=== PATIENT | female | born 1950 | race Caucasian/White ===

== ENCOUNTER → 2023-05-30 06:29 | Day surgery (SDC) | payer BC, SELFPAY | LOC: GI 06:29 | PROVIDERS: ATTENDING PHYSICIAN Internal Medicine; FAMILY PHYSICIAN Family Medicine | DX: Z12.11 Encounter for screening for malignant neoplasm of colon (principal); K63.5 Polyp of colon; K63.89 Other specified diseases of intestine; K57.30 Diverticulosis of large intestine without perforation or abscess without bleeding; K56.2 Volvulus; K64.9 Unspecified hemorrhoids; K29.50 Unspecified chronic gastritis without bleeding; K20.90 Esophagitis, unspecified without bleeding; K21.9 Gastro-esophageal reflux disease without esophagitis; K44.9 Diaphragmatic hernia without obstruction or gangrene; K31.89 Other diseases of stomach and duodenum; R12 Heartburn | CPT/HCPCS: 45380; 43239; 88305; 88342 ==

== ENCOUNTER → 2023-06-04 10:47 | Outpatient (REF) | payer BC, SELFPAY | LOC: WDC 10:47 | PROVIDERS: ATTENDING PHYSICIAN Obstetrics & Gynecology Gynecology; FAMILY PHYSICIAN Family Medicine | DX: Z12.31 Encounter for screening mammogram for malignant neoplasm of breast (principal); M85.89 Other specified disorders of bone density and structure, multiple sites | CPT/HCPCS: 77063; 77067; 77080 ==

== ENCOUNTER 2023-07-24 18:29 | Inpatient (IN) | payer MEDICARE, BC, SELFPAY ==
[2023-07-24] VITALS (9 sets, daily range): BP systolic 100–129; BP diastolic 54–87; BMI 27.6
[2023-07-24 14:55] LABS: % Basophils 0.3 % (0-2); % Eosinophils 0.1 % (0-6); % Immature Granulocytes 0.5 % (0-0.5); % Lymphocytes 8.2 % (20.5-51.1); % Monocytes 5.6 % (1.7-9.3); % Neutrophils 85.3 % (42.2-75.2); Absolute Basophils 0.1 10^3/uL (0-0.2); Absolute Immature Granulocytes 0.1 10^3/uL (0-0.05); Absolute Lymphocytes 1.6 10^3/uL (1.2-3.4); Absolute Monocytes 1.1 10^3/uL (0.1-0.6); Absolute Neutrophils 17.1 10^3/uL (1.4-6.5); Hematocrit 38.6 % (37.0-47.0); Hemoglobin 12.8 g/dL (12.0-16.0); Mean Corp Hgb Conc. 33.2 g/dL (33.0-37.0); Mean Corpuscular Hgb 28.6 pg (27.0-31.0); Mean Corpuscular Volume 86.4 fL (81.0-99.0); Mean Platelet Volume 10.5 fL (7.4-10.4); Nucleated Red Blood Cells % 0 %; Platelet Count 267 10^3/uL (130-400); Red Blood Cell Count 4.47 10^6/uL (4.20-5.40); Red Cell Dist. Width 13.7 % (11.5-14.5); White Blood Cell Count 20.1 10^3/uL (4.8-10.8)
[2023-07-24 15:05] LABS: INR 1.09; PT 14.1 Sec (11.4-14.6)
[2023-07-24 15:12] LABS: ALT (SGPT) 17 U/L (0-35); AST (SGOT) 22 U/L (14-36); Albumin 4.4 g/dl (3.5-5.0); Alkaline Phosphatase 82 U/L (38-126); Blood Urea Nitrogen 18 mg/dl (7-17); Calcium 9.7 mg/dl (8.4-10.2); Carbon Dioxide 25 mmol/L (22-30); Chloride 101 mmol/L (98-107); Glucose 113 mg/dl (70-99); Potassium 3.3 mmol/L (3.5-5.1); Sodium 135 mmol/L (135-145); Total Bilirubin 0.8 mg/dl (0.2-1.3); Total Protein 7.5 g/dl (6.3-8.2); eGFR > 60.00
[2023-07-24] MEDS: MORPHINE SULFATE 4 MG IV (15:22)
[2023-07-24] MEDS: NSS 1000 IV (15:22)
--- NOTE | 2023-07-24 15:34 | ED.GENMED ---
History of Present Illness
General
Chief Complaint: Rectal Bleeding
Source: patient and spouse
Time Seen by Provider: 07/24/23 14:35
Travel History
Have you had any contact with someone who has COVID-19?: No
Do you have any symptoms of coronavirus? Fever > 100 degrees, chills, cough, shortness of breath, sore throat, loss of taste or smell, muscle aches, or headache?: No
History of Present Illness
History of Present Illness:
73-year-old female presenting the emergency department for evaluation of lower abdominal pain and diarrhea that started yesterday, worsened overnight and worse this morning now accompanied with bloody stools which patient states is not bright red
blood but also is not extremely dark either. She states she has had a few episodes of this since arrival to the emergency department. Patient states the pain is described to be along the diffuse lower part of her abdomen, nonradiating, constant
throbbing sensation. She notes that driving here because the pain to worsen. Denies any fevers, chills, rigors, urinary symptoms, back or flank pain, nausea or vomiting. Denies any history of similar. No known sick contacts, recent travel or
recent antibiotics. Patient notes that she had a colonoscopy here about 1 month ago and believes there were no abnormal findings. Does note a history of chronic GERD/reflux-like issues and follows with GI for this. Denies any use of
anticoagulants.
Past History
Past History
ED Past Medical History: GERD and Other (abdominal pain)
ED Past Surgical History: Other (Carpal tunnel)
Social History
Tobacco: Non-smoker
Alcohol: None
Drug: None
Personal:
Living: with family
Review of Systems
Review of Systems
All Other Systems: ROS reviewed and negative except as documented in HPI and ROS
Phy Exam
Physical Exam
Physical Exam:
GENERAL: Alert , in no apparent distress
EYE: Clear conjunctiva
NECK: Supple
ENT: o/p clr, mmm.
CARDIAC: Borderline tachycardic rate and rhythm
LUNGS: Clear breath sounds bilaterally, no acute respiratory distress, no wheezes/rales/rhonchi
ABDOMEN: Soft, diffusely tender abdomen but worse suprapubically and left lower quadrant, no r/g, no cvat
rectal exam: Chaperoned by ED ALE mosley stool, faintly heme positive
NEUROLOGICAL: Alert and oriented, no focal neuro deficits
SKIN: Warm and dry, skin intact.
MUSCULOSKELETAL: well perfused.
PSYCH: Normal and appropriate interaction.
Scores
Heart Failure Risk
Heart Failure Risk Score: Not Applicable
Heart Score for Chest Pain Patients
STEMI patient?: Not applicable
Withdrawal Assessment of Alcohol
Withdrawal Assessment Completed?: Not applicable
Course
Orders/Labs/Results
Orders:
Orders
07/24/23 14:49
Complete Blood Count/With Diff Urgent
Comprehensive Metabolic Panel Urgent
PTT Urgent
Prothrombin Time Urgent
07/24/23 14:57
CT Abd/pelvis W Iv Cont Urgent
Comment:
Reason For Exam: lower abd pain, GI bleeding
07/24/23 14:59
0.9% Sodium Chloride 1000 ml [Nss] 1,000 ml IV BOLUS
Morphine Sulfate 4 mg IV NOW STA
07/24/23 15:15
Type+Screen Routine
BBK Wristband Number:
Lactic Acid Q4H
Comment: CANCEL 2nd LACTIC ACID IF 1st LACTIC ACID IS LESS THAN 2
Blood Culture Q30M
PAL Source: Blood/Venous
Specimen Description:
Blood Culture Q30M
PAL Source: Blood/Venous
Specimen Description:
07/24/23 16:06
HYDROmorphone [Dilaudid] 0.5 mg IV NOW STA
07/24/23 17:26
Piperacillin/Tazo 3.375 Gram [Zosyn] 3.375 gram in 50 ml IV NOW
07/24/23 19:00
Lactic Acid Q4H
Comment: CANCEL 2nd LACTIC ACID IF 1st LACTIC ACID IS LESS THAN 2
Abnormal Lab Results
07/24/23
14:49
WBC 20.1 H 10^3/uL
(4.8-10.8)
MPV 10.5 H fL
(7.4-10.4)
Abs Immat Gran (auto) 0.1 H 10^3/uL
(0-0.05)
Absolute Neuts (auto) 17.1 H 10^3/uL
(1.4-6.5)
Absolute Monos (auto) 1.1 H 10^3/uL
(0.1-0.6)
Neutrophils % 85.3 H %
(42.2-75.2)
Lymphocytes % 8.2 L %
(20.5-51.1)
Potassium 3.3 L mmol/L
(3.5-5.1)
BUN 18 H mg/dl
(7-17)
Glucose 113 H mg/dl
(70-99)
07/24/23 14:49
07/24/23 14:49
Vital Signs
Initial and Last Documented VS:
Initial Vital Signs
Temp Pulse Resp BP Pulse Ox
98.3 F 111 20 108/72 99
07/24/23 13:38 07/24/23 13:38 07/24/23 13:38 07/24/23 13:38 07/24/23 13:38
Last Documented Vital Signs
Temp Pulse Resp BP Pulse Ox
98.3 F 89 19 114/82 97
07/24/23 13:38 07/24/23 17:00 07/24/23 17:00 07/24/23 17:00 07/24/23 16:15
MDM/Problems Addressed
Differential Diagnosis Includes:
Diverticular bleed, colitis, infectious diarrhea, upper GI bleeding, hemorrhoidal bleeding
MDM/Problems Addressed:
73-year-old female presenting emergency department for evaluation of lower abdominal pain and now with bloody bowel movements. She does appear uncomfortable but is in no acute distress. I reviewed patient's colonoscopy from May 29 which shows
hemorrhoids on the perianal exam, multiple diverticulum were present within the left colon and few within the right side of the colon. There was also a polyp that was noted and removed. Based off of her colonoscopy findings I do suspect bleeding
diverticulum to be the most likely diagnosis. CT scan ordered. Morphine ordered for pain. Will continue to watch patient's blood pressure. Anticipate admission.
*Radiology
Radiology exam reviewed: radiology read reviewed
*Pulse Oximetry
Patient hypoxic: no
*Casino Runner Interpretation
Rate: tachycardiac
Rhythm: sinus
*Critical Care Note
Total Time (30-74mins, 75-104mins- exclusive of procedures): Not Applicable
Data Reviewed
Review of Other/Old Records Reveals: Labs, Records and Testing
Patient Management
Discussion with other providers: Hospitalist and Credit Consultant
Escalation/DeEscalation of care consider admission/obs:
Patient CT scan shows colitis involving the transverse colon, descending colon and sigmoid colon. Suspect also diverticular bleed. Zosyn ordered for antibiotic coverage. Hospitalist team notified and accepts for continued evaluation and
treatment. GI and colorectal were also notified.
ED Attending Note
-
Portions of this chart may have been created with voice recognition software.� Occasional wrong word or��sound alike� substitutions may have occurred due to the inherent limitations of voice recognition software.
Discharge Plan
Departure
Patient Disposition: Admit
Date of Disposition: 07/24/23
Time of Disposition: 17:28
Presentation/result/management discussed w/ accepting MD/DO: Hospitalist
Discharge Problem:
Diverticulitis of intestine with bleeding
Prescriptions:
No Action
folic acid 400 mcg Tablet
0.4 mg PO DAILY
gabapentin 600 mg Tablet
600 mg PO BID
famotidine [Pepcid] 20 mg Tablet
20 mg PO DAILY
wrjzeso-cbpbanenwf-SKW-caff [id number] mg capsule
1 cap PO DAILYPRN PRN (Reason: mirgraines)
pantoprazole [Protonix] 40 mg Tablet,Delayed Release (Dr/Ec)
40 mg PO DAILY
lisinopril 10 mg Tablet
10 mg PO DAILY
cholecalciferol (vitamin D3) [Vitamin D3] 25 mcg (1,000 unit) Tablet
25 mcg PO DAILY
venlafaxine 225 mg Tablet Extended Release 24hr
225 mg PO DAILY
Referrals:
Domo Trinh MD [Family Provider] -
Interventions
Interventions:
*Risk Screen - Suicide Last Done: 07/24/23 14:45
*General Assessment Last Done: 07/24/23 14:45
*Neglect/Abuse Screening Last Done: 07/24/23 14:45
ED- Fall Risk Assessment Last Done: 07/24/23 14:45
*ED COVID-19 Vaccine History Last Done: 07/24/23 13:38
RG-Vwqvci-Uxlfairqab Assessment Last Done: 07/24/23 14:45
ED- Cardiac Assessment Last Done: 07/24/23 14:45
ED- Pulmonary Assessment Last Done: 07/24/23 14:45
Discharge Date and Time
Print Language: ITALIAN
[2023-07-24 15:43] LABS: Lactic Acid 1.2 mmol/L (0.7-2.0)
[2023-07-24] MEDS: DILAUDID 0.5 MG IV (16:09)
[2023-07-24] MEDS: ZOSYN 50 IV ×2 (17:47→23:29)
--- NOTE | 2023-07-24 18:12 | HPS.HSE ---
Family Physician
-
Family Physician: Domo Trinh
Chief Complaint
-
Diarrhea
History of Present Illness
Patient is a 73 y/o female past medical history of hypertension, GERD , anxiety and occipital neuralgia who presents with diarrhea. Patient reports yesterday she started with very frequent bowel movement with associated urgency and abdominal
cramping. She reports today stools were more water and she noticed some blood which prompted her to come to the emergency department for evaluation. She denies prior history of colitis or GI bleed. She just had a colonoscopy last month with
evidence of diverticulosis and polyps which were resected. She denies recent travel, unusual food intake or recent antibiotic use.
Medical History
Past Medical History
Past Medical History: Reports Other
Additional Past Medical History:
Essential Hypertension
GERD
Generalized Anxiety Disorder
Occipital Neuralgia
Past Surgical History: Reports Other
Additional Past Surgical History:
Carpal Tunnel
Social History
Tobacco: Non-smoker
Alcohol: Occasional
Family History
Family History: Not pertinent
Allergies / Home Medications
Allergies reflects when Allergies were last updated in [facility].
Home Medications with original date entered in [facility]
Allergy/Medication List:
Allergies
Allergy/AdvReac Type Severity Reaction Status Date / Time
No Known Drug Allergies Allergy none Verified 07/24/23 13:38
Home Medications
folic acid 400 mcg tablet 0.4 mg PO DAILY 06/16/10
cholecalciferol (vitamin D3) 25 mcg (1,000 unit) tablet (Vitamin D3) 25 mcg PO DAILY 07/24/23
dvlsyse-tfkhugjtle-MTC-caffeine 30 mg-50 mg-325 mg-40 mg capsule 1 cap PO DAILYPRN PRN mirgraines 07/24/23
famotidine 20 mg tablet (Pepcid) 20 mg PO DAILY 07/24/23
gabapentin 600 mg tablet 600 mg PO BID 07/24/23
lisinopril 10 mg tablet 10 mg PO DAILY 07/24/23
pantoprazole 40 mg tablet,delayed release (Protonix) 40 mg PO DAILY 07/24/23
venlafaxine 225 mg tablet,extended release 24 hr 225 mg PO DAILY 07/24/23
Review of Systems
-
A 12 point ROS was completed and negative except as noted: Yes
Constitutional: Denies Fever or Chills
Respiratory: Denies Cough or Trouble Breathing
Cardiac: Denies Chest Pain or Palpitations
Physical Exam
Vital Signs
Vital Signs
Temp Pulse Resp BP Pulse Ox
98.3 F 90 19 114/82 98
07/24/23 13:38 07/24/23 17:45 07/24/23 17:45 07/24/23 17:00 07/24/23 17:45
Physical Exam
General: Comfortable and Conversant
HEENT: Anicteric and Moist mucous membranes
Respiratory: Clear and Non Labored Respirations
Cardiac: S1/S2 and Regular Rhythm
GI: Soft and Tender (Left side, particularly in left lower quadrant without rebound or guarding)
Rectal: Other (Brown slightly heme positive per ED provider)
Musculoskeletal: No Clubbing, No Cyanosis and No Edema
Skin: Warm and Dry
Neuro: Awake, Alert, Oriented and Nonfocal/grossly intact
Psych: Calm
Laboratory Results
-
07/24/23 14:49
07/24/23 14:49
Laboratory Results
PT 14.1 Sec (11.4-14.6) 07/24/23 14:49
INR 1.09 07/24/23 14:49
APTT 26.0 Sec (23.4-35.0) 07/24/23 14:49
Lactic Acid 1.2 mmol/L (0.7-2.0) 07/24/23 15:15
Total Bilirubin 0.8 mg/dl (0.2-1.3) 07/24/23 14:49
AST 22 U/L (14-36) 07/24/23 14:49
ALT 17 U/L (0-35) 07/24/23 14:49
Alkaline Phosphatase 82 U/L (38-126) 07/24/23 14:49
Data Reviewed
-
CT Scan: Report Reviewed by me
Lab Data: Labs Reviewed by me
Impression/Plan
-
Colitis, likely ischemic in nature
-Consult GI
-Check stool studies to evaluate for possible infectious colitis
-Continue Zosyn
-Continue NPO/IVFs
Hypokalemia, likely from GI losses
-Replace and recheck level in AM
Essential Hypertension
-Hold lisinopril
GERD
-Continue Protonix and Pepcid
Generalized Anxiety Disorder
-Continue venlafaxine
Occipital Neuralgia
-Continue gabapentin
DVT proph: SCDs
Code Status: Full Code
--- NOTE | 2023-07-24 18:21 | W.PN.UPDATE ---
Update Note
Progress Note Update
I saw and examined the patient.
The MUSIC DEPARTMENT CHAIR or PA's note was reviewed and I agree with the note.
Comment:
GEN: No acute distress, conversant, pleasant
HEENT: anicteric, extraocular movements intact, clear oropharynx without exudates
CV: normal S1/S2, no murmur, rub or gallop
RESP: clear to auscultation bilaterally
GI: soft, non-distended, tender to palpation( left side) , normal active bowel sounds.
EXT: warm, well perfused, no edema bilaterally
NEURO: AAOx3, non-focal
Psych: calm
Assessment and plan
#Acute colitis involving transverse, descending and sigmoid colon
Mild sepsis on admission with the criteria of tachycardia, leukocytosis, colitis
Differential diagnosis included ischemic colitis/infectious colitis. Her symptoms started abruptly.� No history of nausea or vomiting.� Started as lower abdominal cramps with bloody stools. �Borderline low normal systolic blood pressure.� Seems more
consistent with ischemic colitis. We will do empiric antibiotic.� Stool studies. �No history of antibiotic use.� No nausea or vomiting. Normal lactic acid on admission, continue to trend lactic acid.� Volume support with IV fluid. Bowel rest
overnight
# Hypokalemia, replace and recheck
# Primary hypertension. Avoid hypotension.
# DVT and GI prophylaxis
Total time spent to see the patient, examine the patient, review data and lab results, discuss treatment plan with patient, nursing staff, ER doctor around 75 minutes
[2023-07-24] MEDS: KCL 270 MEQ IV (18:50)
[2023-07-24] MEDS: D5/0.9% SODIUM CHLORIDE 1000 IV (18:50)
[2023-07-24] MEDS: NEURONTIN PO (20:36)
[2023-07-24] MEDS: DILAUDID 0.25 MG IV (20:54)
[2023-07-25] MEDS: D5/0.9% SODIUM CHLORIDE 1000 IV ×3 (02:33→17:25)
[2023-07-25] MEDS: DILAUDID 0.25 MG IV ×2 (02:40→17:36)
[2023-07-25 03:00] VITALS: BP 112/62
[2023-07-25] MEDS: ZOSYN 50 IV ×4 (05:26→23:35)
[2023-07-25 05:41] LABS: Hematocrit 29.2 % (37.0-47.0); Mean Corp Hgb Conc. 33.6 g/dL (33.0-37.0); Mean Corpuscular Hgb 28.4 pg (27.0-31.0); Mean Corpuscular Volume 84.6 fL (81.0-99.0); Mean Platelet Volume 10.7 fL (7.4-10.4); Platelet Count 205 10^3/uL (130-400); Red Blood Cell Count 3.45 10^6/uL (4.20-5.40); Red Cell Dist. Width 13.8 % (11.5-14.5); White Blood Cell Count 11.8 10^3/uL (4.8-10.8)
[2023-07-25 05:50] LABS: Hemoglobin 9.8 g/dL (12.0-16.0)
--- NOTE | 2023-07-25 05:56 | PTCARENOTE ---
CRISTOBAL Jeff notified of pt's drop in [facility] in morning labs. No active signs of bleeding, pt had no bowel movements overnight, VSS.
[2023-07-25 06:00] VITALS: BMI 28.0
[2023-07-25 06:07] LABS: Blood Urea Nitrogen 12 mg/dl (7-17); Calcium 8.3 mg/dl (8.4-10.2); Carbon Dioxide 23 mmol/L (22-30); Chloride 110 mmol/L (98-107); Estimated Creatinine Clearance 60 ml/min; Glucose 136 mg/dl (70-99); Magnesium 1.7 mg/dl (1.6-2.3); Potassium 4.2 mmol/L (3.5-5.1); Sodium 138 mmol/L (135-145); eGFR > 60.00
--- NOTE | 2023-07-25 06:11 | W.PN.UPDATE ---
Update Note
Progress Note Update
RN notified COMMUNICATION ASSISTANT of hgb drop from 12.8 to 9.8. Patient asymptomatic, stable VS per nursing. GI Consult in place. will order H/H 0900, type and screen done
[2023-07-25 07:47] VITALS: BP 127/77
[2023-07-25] MEDS: EFFEXOR XR 225 MG PO (08:46)
[2023-07-25] MEDS: PEPCID 20 MG PO (08:46)
--- NOTE | 2023-07-25 08:46 | CON.GI ---
Consultation
-
Date/Time Consultation Requested: 07/24/23 1920
Date/Time Consultation Performed: 07/25/23 0900
Requesting Provider: Yissel Hinkle PA-C
Performing Provider: Dr. Dave / Kajal Neely PA-C
Reason for Consultation: colitis
Medical History
Chief Complaint / HPI
Chief Complaint: abdominal pain, rectal bleeding
History of Present Illness:
Mariah is a 73 year old female with a past medical history of HTN, anxiety, occipital neuralgia, GERD and diverticulosis who developed acute onset of diarrhea 3 days ago with rectal bleeding and lower abdominal pain. She states the diarrhea lasted
for a day and resolved and she has not had a bowel movement for the past 2 days. She would feel the urge to have a bowel movement, but only blood came out. Bleeding described as 'not a lot' and light red in color. No fevers, chills, nausea,
vomiting, or black/tarry stools. No sick contacts, recent travel or recent antibiotic use. She has known diverticulosis but denies a history of diverticulitis. She is known to our GI practice, was a former patient of Dr. Mcallister's and now followed by
Dr. Servin. She has chronic GERD, on pantoprazole and famotidine. No heartburn, reflux, or dysphagia symptoms currently. She just had a colonoscopy with Dr. Servin on 05/30/23 which showed diverticulosis of the left colon, a 3mm hyperplastic polyp of the
distal transverse colon, as well as an area of scarred mucosa in the mid and distal transverse colon. There is no family history of colon cancer or inflammatory bowel disease. Labs in the ER showed leukocytosis (WBC count 20.8). Lactic acid WNL at
1.2 and hemoglobin stable at 12.8. Platelets and PT/INR also normal. CT abdomen/pelvis showed nonspecific colitis involving the transverse, descending and sigmoid colon with sparing of the cecum and ascending colon. Diverticulosis noted in the
sigmoid colon, without evidence of acute diverticulitis. Also noted on CT are low attenuation structures within the region of the pancreatic head, noted to be too small to characterize with recommendation for nonemergent MRI for further evaluation.
Blood and stool cultures pending. Pt has been started on Zosyn, WBC improved to 11.8 today.
Past Medical History
Past Medical History: GERD, HTN and Other (anxiety, occipital neuralgia, diverticulosis)
Past Surgical History: Other (carpal tunnel surgery)
Social History
Tobacco: Non-Smoker
Alcohol: None
Drug: None
Personal:
Living: With Family
Family History
Family History: Other (no family history of GI malignancies, Crohn's, or ulcerative colitis)
Allergies / Home Medications
Allergy/AdvReac Type Severity Reaction Status Date / Time
No Known Drug Allergies Allergy none Verified 07/24/23 13:38
�Medication �Instructions �Recorded
folic acid 400 mcg tablet 0.4 mg PO DAILY 06/16/10
cholecalciferol (vitamin D3) 25 25 mcg PO DAILY 07/24/23
mcg (1,000 unit) tablet (Vitamin
D3)
yphtjkf-venpqlgkeb-LVD-caffeine 30 1 cap PO DAILYPRN PRN mirgraines 07/24/23
mg-50 mg-325 mg-40 mg capsule
famotidine 20 mg tablet (Pepcid) 20 mg PO DAILY 07/24/23
gabapentin 600 mg tablet 600 mg PO BID 07/24/23
lisinopril 10 mg tablet 10 mg PO DAILY 07/24/23
pantoprazole 40 mg tablet,delayed 40 mg PO DAILY 07/24/23
release (Protonix)
venlafaxine 225 mg tablet,extended 225 mg PO DAILY 07/24/23
release 24 hr
Review of Systems
-
History Source: Patient
All other systems: A 12 pt ROS was Negative except as stated above in HPI
Vital Signs
Temp Pulse Resp BP Pulse Ox
98.2 F 93 18 127/77 98
07/25/23 07:47 07/25/23 07:47 07/25/23 07:47 07/25/23 07:47 07/25/23 07:47
Physical Exam
Exam
General: Well Developed, Well Nourished and No Apparent Distress
Respiratory: Clear
Cardiac: Regular Rhythm
GI: Soft, Non Distended, Normal Bowel Sounds (hypoactive bowel sounds) and Tender (+mild lower abdominal tenderness, worse in the left lower quadrant)
Rectal: Other (brown, faintly heme positive stool on ER exam)
Skin: Warm and Dry
Neuro: AO x 3
Psych: Calm
Results
WBC 11.8 10^3/uL (4.8-10.8) H 07/25/23 05:26
Hgb 9.8 g/dL (12.0-16.0) L D 07/25/23 05:26
Hct 29.2 % (37.0-47.0) L 07/25/23 05:26
MCV 84.6 fL (81.0-99.0) 07/25/23 05:26
Plt Count 205 10^3/uL (130-400) D 07/25/23 05:26
Absolute Neuts (auto) 17.1 10^3/uL (1.4-6.5) H 07/24/23 14:49
PT 14.1 Sec (11.4-14.6) 07/24/23 14:49
INR 1.09 07/24/23 14:49
APTT 26.0 Sec (23.4-35.0) 07/24/23 14:49
Sodium 138 mmol/L (135-145) 07/25/23 05:26
Potassium 4.2 mmol/L (3.5-5.1) D 07/25/23 05:26
Chloride 110 mmol/L (98-107) H 07/25/23 05:26
Carbon Dioxide 23 mmol/L (22-30) 07/25/23 05:26
BUN 12 mg/dl (7-17) 07/25/23 05:26
Creatinine 0.8 mg/dL (0.6-1.0) 07/25/23 05:26
Calcium 8.3 mg/dl (8.4-10.2) L 07/25/23 05:26
Total Bilirubin 0.8 mg/dl (0.2-1.3) 07/24/23 14:49
AST 22 U/L (14-36) 07/24/23 14:49
ALT 17 U/L (0-35) 07/24/23 14:49
Alkaline Phosphatase 82 U/L (38-126) 07/24/23 14:49
Diagnostic Image Results:
CT Abdomen/Pelvis: 07/24/23
Nonspecific colitis involving the transverse colon, descending colon, and sigmoid colon. No evidence of pneumatosis.
Minor sigmoid diverticulosis without superimposed focal inflammatory changes of acute diverticulitis.
Trace free fluid in the pelvis. No focal collection or abscess. No free air.
There appear to be small low-attenuation structures in the region of the pancreatic head. Too small to fully characterize. Recommend follow-up nonemergent MRI examination for further evaluation.
Prior GI Procedures:
EGD:
Endoscopy 05/30/2023, Dr. Servin:
- 3 cm hiatal hernia otherwise normal esophagus.
- Biopsies were taken with a cold forceps for
histology in the middle third of the esophagus and in
the lower third of the esophagus.
- Erythematous mucosa in the antrum. Biopsied.
- Normal examined duodenum.
Colonoscopy:
Colonoscopy 05/30/2023, Dr. Servin:
- Hemorrhoids found on perianal exam.
- Diverticulosis in the left colon and a few
throughout.
- One 3 mm polyp in the distal transverse colon,
removed with a jumbo cold forceps. Resected and
retrieved.
- Scarred mucosa in the mid transverse colon and in
the distal transverse colon - usually from a prior
infection or ischemic colitis.
- The examined portion of the ileum was normal.
Colonoscopy 02/02/2014, Dr. Mcallister:
- Diverticulosis in the sigmoid colon. Biopsied.
Assessment / Plan
-
73 year old female with a history of HTN, anxiety, occipital neuralgia, GERD and diverticulosis who developed acute onset of diarrhea 3 days ago with rectal bleeding and lower abdominal pain. Diarrhea has now resolved; no fever, chills, nausea or
vomiting. The abdominal pain is improved but still feels 'sore.' CT findings of nonspecific colitis involving the transverse, descending and sigmoid colon; diverticulosis noted without evidence of diverticulitis. Blood and stool cultures pending.
Initial WBC count on admission yesterday 20.8 without an elevated lactic acid. Pt has been started on Zosyn, WBC improved to 11.8 today.
IMPRESSION / PLAN:
Colitis, nonspecific -- infectious vs inflammatory vs ischemic
-initial presentation with elevated WBC count suggestive of possible infectious colitis
-blood cultures pending
-stool cultures ordered
-pt currently on IV Zosyn
-Ischemic colitis certainly within the differential diagnosis as well; pt has been hemodynamically stable without hypotension
-continue IV fluids
Anemia
-initial Hgb 12.8 on 07/23
-down to 9.8 today 07/24 with normal MCV
-will order iron studies, B12, folate
-continue to trend Hgb
-pt had recent EGD and colonoscopy in May
GERD, chronic
-continue pantoprazole 40mg and famotidine 20mg
Pancreatic lesions
-'low attenuation structures' within the region of the pancreatic head, too small to characterize noted on CT scan, with recommendation for nonemergent MRI for further evaluation
-can be addressed in outpatient follow-up
Other medical issues managed as per Hospitalist. We will follow.
-
-
Thank you for consultation and allowing me to participate in the patient's care. Please call the credit resolution representative GI physician during the after hours with any questions or concerns.
[2023-07-25] MEDS: NEURONTIN 600 MG PO ×2 (08:47→21:19)
[2023-07-25] MEDS: PROTONIX 40 MG PO (08:48)
--- NOTE | 2023-07-25 10:12 | W.PN.HOSP.TC ---
Today's Communication/Plan
-
.
Assessment / Plan
Assessment / Plan
Physical exam:
GEN: No acute distress, conversant, pleasant
HEENT: anicteric, extraocular movements intact, clear oropharynx without exudates
CV: normal S1/S2, no murmur, rub or gallop
RESP: clear to auscultation bilaterally
GI: soft, non-distended, tender to palpation( left side> right side).
EXT: warm, well perfused, no edema bilaterally
NEURO: AAOx3, non-focal
Psych: calm
#Acute colitis, involvement transverse, descending and sigmoid
likely ischemic in nature
She still having abdominal discomfort. Tenderness on examination left side more than right. No diarrhea overnight
She is not toxic looking. She is not hungry also. No vomiting. WBC is down.
Follow-up with the blood cultures
Continue bowel rest, IV fluid, GI prophylaxis, empiric antibiotic until rule out infectious possibility
Appreciate GI input
# Acute blood loss anemia due to bloody diarrhea.
No more diarrhea. Continue to monitor
# Hypokalemia. Potassium 4 this morning
#Essential Hypertension
-Hold lisinopril while blood pressure is borderline low. Add as needed hydralazine
#GERD
-Continue Protonix and Pepcid
#Generalized Anxiety Disorder
-Continue venlafaxine
#Occipital Neuralgia
-Continue gabapentin
DVT proph: SCDs
Code Status: Full Code
Total time spent to see the patient, examine the patient, review data and lab results, discuss treatment plan with patient, nursing staff around 55 minutes
Anticipated Discharge: > 48 hours
Subjective/Interval History
-
Date of Service: July 25, 2023
Still abdominal discomfort
No diarrhea
No fevers
Objective Data
-
Labs:
Laboratory Results
07/25/23
05:26
WBC 11.8 H
Hgb 9.8 L D
Hct 29.2 L
Plt Count 205 D
Sodium 138
Potassium 4.2 D
Chloride 110 H
Carbon Dioxide 23
BUN 12
Creatinine 0.8
Glucose 136 H
Calcium 8.3 L
Vital Signs:
Vital Signs
Temp Pulse Resp BP Pulse Ox
98.2 F 93 18 127/77 98
07/25/23 07:47 07/25/23 07:47 07/25/23 07:47 07/25/23 07:47 07/25/23 07:47
I&O
07/24/23 07/25/23 07/26/23
06:59 06:59 06:59
Intake Total 1670 / 1670
Balance 1670 / 1670
[2023-07-25 11:07] LABS: Iron 38 ug/dl (37-170)
[2023-07-25 11:16] LABS: Percent Saturation 13 % (20-50); Total Iron Binding Capacity 281 ug/dl (265-497)
[2023-07-25 11:40] LABS: Ferritin 43.8 ng/ml (11.1-264.0)
[2023-07-25 11:54] LABS: Vitamin B12 283 pg/ml (239-931)
--- NOTE | 2023-07-25 11:55 | CON.CRS ---
Consultation
-
Date/Time Consultation Requested: 07/24/2023, 18:21
Date/Time Consultation Performed: 07/25/2023, 09:00
Requesting Provider: Erik Leblanc PA-C
Performing Provider: Sagar Blair MD
Reason for Consultation: colitis
Medical History
-
Chief Complaint: bloody diarrhea
History of Present Illness:
73yo female with a PMH of HTN and GERD presents with a day of diarrhea and abdominal pain. She states it started 07/23/2023 in the AM and lasted the entire day. Toward the end of the day, the diarrhea stopped but she had pink to red blood in the
toilet. She states that she had no stool, just blood. She has never had an issue like this before. She denies chest pain, shortness of break, blood or pain in her urine. When she came to the Er yesterday, she denied abdominal pain. She denies nausea
or vomiting. Her last colonoscopy was a month ago by Dr. Servin which showed diverticulosis in her left colon and a 3mm polyp in the distal transverse colon.
In the Er, her WBC was 20.1. She remains afebrile. Her vitals are normal. Ct A/P shows nonspecific colitis involving the transverse colon, descending colon, and sigmoid colon. No evidence of pneumatosis. Minor sigmoid diverticulosis without
superimposed focal inflammatory changes of acute diverticulitis. She was started on IV Zosyn. Today her WBC is 11.8. Currently she states she has no further bleeding or diarrhea.
Past Medical History
Past Medical History: GERD, HTN, Psychiatric (anxiety) and Other (Occipital Neuralgia)
Past Surgical History: Other (Carpal Tunnel)
Social History
Tobacco: Non-Smoker
Alcohol: Occasional
Family History
Family History: Reviewed & Not Pertinent
Allergies / Home Medications
Allergy/AdvReac Type Severity Reaction Status Date / Time
No Known Drug Allergies Allergy none Verified 07/24/23 13:38
�Medication �Instructions �Recorded �Confirmed �Type
folic acid 400 mcg tablet 0.4 mg PO DAILY Supplement 06/16/10 07/24/23 History
cholecalciferol (vitamin D3) 25 25 mcg PO DAILY Supplement 07/24/23 07/24/23 History
mcg (1,000 unit) tablet (Vitamin
D3)
gqzikzl-zhkubygiie-BXM-caffeine 30 1 cap PO DAILYPRN PRN mirgraines 07/24/23 07/24/23 History
mg-50 mg-325 mg-40 mg capsule
famotidine 20 mg tablet (Pepcid) 20 mg PO DAILY Gastrointestinal 07/24/23 07/24/23 History
Issue
gabapentin 600 mg tablet 600 mg PO BID Neurological 07/24/23 07/24/23 History
Condition
lisinopril 10 mg tablet 10 mg PO DAILY Blood Pressure 07/24/23 07/24/23 History
pantoprazole 40 mg tablet,delayed 40 mg PO DAILY Gastrointestinal 07/24/23 07/24/23 History
release (Protonix) Issue
venlafaxine 225 mg tablet,extended 225 mg PO DAILY Mental Health 07/24/23 07/24/23 History
release 24 hr
Review of Systems
-
History Source: Patient
Abdomen/GI: Abdominal Pain, Diarrhea and Bloody Stools
A 10 point review of systems was completed, and was negative except as per HPI.
Physical Exam
Vital Signs
Temp 98.2 F 07/25/23 07:47
Pulse 93 07/25/23 07:47
Resp Rate 18 07/25/23 07:47
Blood pressure 127/77 07/25/23 07:47
SaO2 98 07/25/23 07:47
07/24/23 07/25/23 07/26/23
06:59 06:59 06:59
Actual Weight 71.753 kg
Body Mass Index (BMI) 28.0
Lab Results / Allergies
07/25/23 05:26
07/25/23 05:26
WBC 11.8 10^3/uL (4.8-10.8) H 07/25/23 05:26
Hgb 9.8 g/dL (12.0-16.0) L D 07/25/23 05:26
Hct 29.2 % (37.0-47.0) L 07/25/23 05:26
Plt Count 205 10^3/uL (130-400) D 07/25/23 05:26
Abs Immat Gran (auto) 0.1 10^3/uL (0-0.05) H 07/24/23 14:49
Neutrophils % 85.3 % (42.2-75.2) H 07/24/23 14:49
Allergy/AdvReac Type Severity Reaction Status Date / Time
No Known Drug Allergies Allergy none Verified 07/24/23 13:38
Physical Exam
General: Well Developed, Well Nourished and No Apparent Distress
GI: Soft, Non Distended and Tender (mild suprapubic)
Neuro: AO x 3
Data Reviewed
-
CT Scan: Image Personally Visualized and interpreted, Report Reviewed by me and Discussed with Patient
Labs: Labs Reviewed by me, Discussed with Physician and Discussed with Patient
Old Records: Reviewed
Assessment / Plan
-
Assessment: 73 yo female with no previous history of colitis presents to the ER with a day of diarrhea, bloody stools, and abdominal pain, found with nonspecific colitis involving the transverse colon, descending colon, and sigmoid colon
Plan:
1. Colitis is nonspecific, could be inflammatory versus infectious versus ischemic. There are no plans for surgery at this time.
2. Stool cultures and blood cultures are pending.
3. Continue IV Zosyn.
4. N.p.o. with IV fluids.
5. Continue to trend vital signs and WBC.
6. Appreciate GI consult.
[2023-07-25 12:00] VITALS: BP 140/87
[2023-07-25 13:11] LABS: Folate > 20.0 ng/ml (2.76-20)
--- NOTE | 2023-07-25 14:30 | CM ---
Met with pt at bedside
Pt lives with her in a 2 story home
Independent, retired, drives
DME - none
SNF/HH - denies past hx
Has ride at d/c
PCP - Dr Vick Trinh
Pharm - [facility]
CM will follow for d/c needs
Plan - anticipate home no needs
[2023-07-25 15:36] VITALS: BP 137/72
[2023-07-25 19:20] VITALS: BP 149/81
[2023-07-25 23:05] VITALS: BP 119/59
[2023-07-26] MEDS: D5/0.9% SODIUM CHLORIDE 1000 IV (03:52)
[2023-07-26 03:55] VITALS: BP 142/74
--- NOTE | 2023-07-26 04:41 | PTCARENOTE ---
Patient with no BM so far this shift. But she did wipe for a small amount of blood with mucus on the tissue paper. IVF and IV ABX as ordered.
[2023-07-26] MEDS: ZOSYN 50 IV (05:48)
[2023-07-26 06:00] VITALS: BMI 28.4
[2023-07-26 07:45] VITALS: BP 138/80
[2023-07-26] MEDS: PEPCID 20 MG PO (08:20)
[2023-07-26] MEDS: PROTONIX 40 MG PO (08:20)
[2023-07-26] MEDS: NEURONTIN 600 MG PO ×2 (08:20→20:12)
[2023-07-26] MEDS: EFFEXOR XR 225 MG PO (08:20)
[2023-07-26 09:16] LABS: Hematocrit 28.7 % (37.0-47.0); Hemoglobin 9.6 g/dL (12.0-16.0); Mean Corp Hgb Conc. 33.4 g/dL (33.0-37.0); Mean Corpuscular Hgb 28.4 pg (27.0-31.0); Mean Corpuscular Volume 84.9 fL (81.0-99.0); Mean Platelet Volume 10.5 fL (7.4-10.4); Platelet Count 195 10^3/uL (130-400); Red Blood Cell Count 3.38 10^6/uL (4.20-5.40); Red Cell Dist. Width 13.6 % (11.5-14.5); White Blood Cell Count 6.8 10^3/uL (4.8-10.8)
[2023-07-26 09:45] LABS: Blood Urea Nitrogen 4 mg/dl (7-17); Calcium 8.5 mg/dl (8.4-10.2); Carbon Dioxide 26 mmol/L (22-30); Chloride 111 mmol/L (98-107); Estimated Creatinine Clearance 61 ml/min; Glucose 106 mg/dl (70-99); Sodium 138 mmol/L (135-145); eGFR > 60.00
--- NOTE | 2023-07-26 10:09 | W.PN.HOSP.TC ---
Today's Communication/Plan
-
.
Assessment / Plan
Assessment / Plan
Physical exam:
GEN: No acute distress, conversant, pleasant
HEENT: anicteric, extraocular movements intact, clear oropharynx without exudates
CV: normal S1/S2, no murmur, rub or gallop
RESP: clear to auscultation bilaterally
GI: soft, non-distended, not tender to palpation( left side> right side).
EXT: warm, well perfused, no edema bilaterally
NEURO: AAOx3, non-focal
Psych: calm
#Acute colitis, involvement transverse, descending and sigmoid
likely ischemic in nature
She is feeling better, would like to eat. No more diarrhea. No fevers.
She is not toxic looking. No vomiting. WBC is normal now.
Ok to start liquid diet then advance as tolerated. Can stop IVF
Negative blood cultures. Stool testing was nt done due to lack of specimen. Might get stool after resuming oral diet
Continue bowel rest, IV fluid, GI prophylaxis, empiric antibiotic until rule out infectious possibility
Might get MR if possible to obtain today
Appreciate GI , colorectal surgery input
# Acute blood loss anemia due to bloody diarrhea.
No more diarrhea. Continue to monitor
# Hypokalemia. Resolved.
#Essential Hypertension
-Hold lisinopril while blood pressure is borderline low. Add as needed hydralazine
#GERD
-Continue Protonix and Pepcid
#Generalized Anxiety Disorder
-Continue venlafaxine
#Occipital Neuralgia
-Continue gabapentin
DVT proph: SCDs
Code Status: Full Code
Total time spent to see the patient, examine the patient, review data and lab results, discuss treatment plan with patient, consultants nursing staff around 55 minutes
Anticipated Discharge: 24 - 48 hours
Subjective/Interval History
-
Date of Service: July 26, 2023
She feels better
No diarrhea
No fevers
No nausea
Objective Data
-
Labs:
Laboratory Results
07/26/23
09:02
WBC 6.8
Hgb 9.6 L
Hct 28.7 L
Plt Count 195
Sodium 138
Potassium 4.0
Chloride 111 H
Carbon Dioxide 26
BUN 4 L
Creatinine 0.8
Glucose 106 H
Calcium 8.5
Vital Signs:
Vital Signs
Temp Pulse Resp BP Pulse Ox
98.6 F 93 17 138/80 99
07/26/23 07:45 07/26/23 07:45 07/26/23 07:45 07/26/23 07:45 07/26/23 07:45
I&O
07/25/23 07/26/23 07/27/23
06:59 06:59 06:59
Intake Total 1670 / 1670 2860 / 2860
Balance 1670 / 1670 2860 / 2860
--- NOTE | 2023-07-26 10:41 | W.PN.CRS1 ---
Today's Communication / Plan
-
no plans for surgery
will sign off
please contact if further issues arise
Assessment/Plan
-
Assessment: 73 yo female with no previous history of colitis presents to the ER with a day of diarrhea, bloody stools, and abdominal pain, found with nonspecific colitis involving the transverse colon, descending colon, and sigmoid colon
Plan:
1. Colitis is nonspecific, could be inflammatory versus infectious versus ischemic.
2. Stool cultures and blood cultures are pending.
3. Continue IV Zosyn.
4. Okay to advance diet to clears and then as tolerated.
5. Continue to trend vital signs and WBC.
6. MRI per GI pending.
7. No plans for surgery at this time. Will sign off. Please contact us if further issues arise. Follow up in the office with Dr. Blair due to rectal bleeding.
Subjective Data
Subjective Data
Date of Service: July 26, 2023
Patient states she has no nausea or vomiting. She had no bowel movements overnight. She did notice some blood when wiping. She is hungry.
Objective Data
-
Vital Signs
Temp Pulse Resp BP Pulse Ox
98.6 F 93 17 138/80 99
07/26/23 07:45 07/26/23 07:45 07/26/23 07:45 07/26/23 07:45 07/26/23 07:45
Intake & Output
07/25/23 07/26/23 07/27/23
06:59 06:59 06:59
Intake Total 1670 / 1670 2860 / 2860
Balance 1670 / 1670 2860 / 2860
Intake:
Oral fluids 20 / 20 60 / 60
IV fluids (Total) 1650 / 1650 2700 / 2700
IV piggybacks 100 / 100
Other:
Number of approximated SMALL 3
amounts of urine
Number of approximated MODERATE 3 2
amounts of urine
Number of approximated LARGE 1
amounts of urine
Lab Results
07/26/23 09:02
07/26/23 09:02
Physical Exam
-
General: No Acute Distress and AOx3
Abdomen: Soft, Non Distended and Tender (minimal tenderness)
Skin: Warm and Dry
--- NOTE | 2023-07-26 11:05 | W.PN.GI.CBS2 ---
Today's Communication / Plan
-
Advance diet. MRA pending. If tolerating diet, okay to discharge from a GI perspective, with outpatient follow-up
Assessment / Plan
-
73 year old female with a history of HTN, anxiety, occipital neuralgia, GERD and diverticulosis who developed acute onset of diarrhea 3 days ago with rectal bleeding and lower abdominal pain. On arrival, she was noted to be hemodynamically stable
with leukocytosis of 20K and normal lactate, CT findings consistent colitis in a watershed distribution. She was started on zosyn, changed to unasyn as well as IVF with significant improvement and resolution of symptoms.Her blood cultures have been
negative and she has not had any bowel movements to collect for stool culture or c.diff, which does not support an infectious colitis.
She recently underwent a colonoscopy with Dr. Servin on 05/30/2023 which notes diverticulosis throughout the left colon as well as scattered in the right colon. Scarred mucosa was noted in the mid transverse colon and in the distal transverse colon,
she notes appearance stent with prior infection or ischemic colitis. At this time her clinical picture is overall consistent with ischemic colitis, imaging corresponds to watershed region. Given recent colonoscopy she does not require a
colonoscopy at this time as she appears to have a mild presentation.
#Colitis likely 2/2 ischemia less likely infectious or inflammatory etiology
-Recommend dedicated imaging of her vasculature--MRA pending.
-Advance diet as tolerated--if able to tolerate diet, okay for discharge from GI perspective
-Despite her not necessarily meeting all criteria for antibiotics, I feel there is some benefit to completing therapy to prevent bacterial translocation due to loss of mucosal integrity--Complete 7 day course of antibiotics
-Outpatient follow-up with GI
*GERD, chronic
-continue pantoprazole 40mg and famotidine 20mg
#Pancreatic lesions
-'low attenuation structures' within the region of the pancreatic head, too small to characterize noted on CT scan, with recommendation for nonemergent MRI for further evaluation
-can be addressed in outpatient follow-up
Subjective
Subjective
Date of Service: July 26, 2023
Patient seen in follow-up this morning, no overnight events. Her diet was advanced today, she feels hungry and would like to try eating. Denies any nausea, vomiting, abdominal pain. She does admit to scant amount of bright red blood in the toilet
last night, hemoglobin stable at 9.6 from 9.8 yesterday.
Objective
Data Reviewed
Laboratory Data:
Laboratory Results
07/26/23 09:02
07/26/23 09:02
Laboratory Results
PT 14.1 Sec (11.4-14.6) 07/24/23 14:49
INR 1.09 07/24/23 14:49
APTT 26.0 Sec (23.4-35.0) 07/24/23 14:49
Magnesium 1.7 mg/dl (1.6-2.3) 07/25/23 05:26
Total Bilirubin 0.8 mg/dl (0.2-1.3) 07/24/23 14:49
AST 22 U/L (14-36) 07/24/23 14:49
ALT 17 U/L (0-35) 07/24/23 14:49
Alkaline Phosphatase 82 U/L (38-126) 07/24/23 14:49
Vital Signs and I&O:
Vital Signs
Temp Pulse Resp BP Pulse Ox
98.6 F 93 17 138/80 99
07/26/23 07:45 07/26/23 07:45 07/26/23 07:45 07/26/23 07:45 07/26/23 07:45
I&O
07/25/23 07/26/23 07/27/23
06:59 06:59 06:59
Intake Total 1670 / 1670 2860 / 2860
Balance 1670 / 1670 2860 / 2860
Physical Exam
Physical Exam
GENERAL: In no acute distress, appears comfortable
ABDOMEN: +BS; soft, non-tender and non-distended; no rebound or guarding
[2023-07-26 12:09] VITALS: BP 130/83
[2023-07-26 15:29] VITALS: BP 149/87
[2023-07-26 19:10] VITALS: BP 147/83
[2023-07-26 23:05] VITALS: BP 139/90
[2023-07-27 03:05] VITALS: BP 120/67
[2023-07-27 06:00] VITALS: BMI 28.1
[2023-07-27 07:00] VITALS: BP 152/96
[2023-07-27] MEDS: PEPCID 20 MG PO (08:39)
[2023-07-27] MEDS: EFFEXOR XR 225 MG PO (08:39)
[2023-07-27] MEDS: NEURONTIN 600 MG PO (08:39)
[2023-07-27] MEDS: PROTONIX 40 MG PO (08:39)
--- NOTE | 2023-07-27 09:05 | CM ---
Reviewed chart, per nursing notes, patient is at baseline, ambulating independently as well as toileting and performing other ADLs.
Plan: Case management will continue to follow and assist with discharge planning. Patient will return home with spouse at discharge.
--- NOTE | 2023-07-27 09:15 | W.PN.GI.CBS2 ---
Today's Communication / Plan
-
dc planning, gi/vasc surgery outpatient follow up, abx
Assessment / Plan
-
73 year old female with a history of HTN, anxiety, occipital neuralgia, GERD and diverticulosis who developed acute onset of diarrhea 3 days ago with rectal bleeding and lower abdominal pain. On arrival, she was noted to be hemodynamically stable
with leukocytosis of 20K and normal lactate, CT findings consistent colitis in a watershed distribution. She was started on zosyn, changed to unasyn as well as IVF with significant improvement and resolution of symptoms.Her blood cultures have been
negative and she has not had any bowel movements to collect for stool culture or c.diff, which does not support an infectious colitis.
She recently underwent a colonoscopy with Dr. Servin on 05/30/2023 which notes diverticulosis throughout the left colon as well as scattered in the right colon. Scarred mucosa was noted in the mid transverse colon and in the distal transverse colon,
she notes appearance stent with prior infection or ischemic colitis. At this time her clinical picture is overall consistent with ischemic colitis, imaging corresponds to watershed region. Given recent colonoscopy she does not require a
colonoscopy at this time as she appears to have a mild presentation.
MRA 07/26/2023 1. Severe circumferential wall thickening and submucosal edema in the PROXIMAL SIGMOID COLON consistent with ACUTE ISCHEMIC COLITIS. Mild circumferential wall thickening throughout the descending colon which has decreased since
07/24/2023. An acute infectious colitis is an alternative diagnostic possibility.
2. 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
3. Moderate diverticulosis in the sigmoid colon.
#Ischemic colitis
-MRA as above, d/w Dr. Moulton who d/w vascular surgery recommend outpatient follow up
-Tolerating diet
-Complete 7 day course of antibiotics
-Outpatient follow-up with GI - patient given appt date/time with Dr. Servin 08/20
*GERD, chronic
-continue pantoprazole 40mg and famotidine 20mg
#Pancreatic lesions
-'low attenuation structures' within the region of the pancreatic head, too small to characterize noted on CT scan, with recommendation for nonemergent MRI for further evaluation
-can be addressed in outpatient follow-up
GI will sign off pls call with ?s
Subjective
Subjective
Date of Service: July 27, 2023
Minimal pain, loose stool but no diarrhea no bleeding
tolerating diet
Objective
Data Reviewed
Laboratory Data:
Laboratory Results
07/26/23 09:02
07/26/23 09:02
Laboratory Results
PT 14.1 Sec (11.4-14.6) 07/24/23 14:49
INR 1.09 07/24/23 14:49
APTT 26.0 Sec (23.4-35.0) 07/24/23 14:49
Magnesium 1.7 mg/dl (1.6-2.3) 07/25/23 05:26
Total Bilirubin 0.8 mg/dl (0.2-1.3) 07/24/23 14:49
AST 22 U/L (14-36) 07/24/23 14:49
ALT 17 U/L (0-35) 07/24/23 14:49
Alkaline Phosphatase 82 U/L (38-126) 07/24/23 14:49
Vital Signs and I&O:
Vital Signs
Temp Pulse Resp BP Pulse Ox
98.4 F 100 16 152/96 97
07/27/23 07:00 07/27/23 07:00 07/27/23 07:00 07/27/23 07:00 07/27/23 07:00
I&O
07/26/23 07/27/23 07/28/23
06:59 06:59 06:59
Intake Total 2860 / 2860 750 / 750
Balance 2860 / 2860 750 / 750
Physical Exam
Physical Exam
GI: Non Distended and Non Tender
[2023-07-27 11:26] VITALS: BP 161/76
--- NOTE | 2023-07-27 12:09 | CM ---
IMM provided to patient and is on chart.
--- NOTE | 2023-07-27 14:17 | W.DCSUMMARY ---
Discharge Summary
Discharge Data
Date of Admission: 07/24/23
Date of Discharge: 07/27/23
-
Pending Results: No
Hospital Course
73 years old female presented with abrupt onset of bloody diarrhea with some abdominal discomfort. She did not have vomiting. She did not have fever. She had leukocytosis around 20 on admission. Scan of the abdomen and pelvis showed colitis
including transverse, descending and sigmoid colon. No history of fevers. No history of eating outside the house, sick contact or food poisoning. She did not have respiratory symptoms. Patient was admitted for supportive care and given empiric
antibiotics. She did not have further diarrhea in the hospital. Stool testing did not show Clostridia Difficile infection. Patient was diagnosed with acute ischemic colitis. She had history of hypertension but no documented peripheral arterial
disease or hypotension although she had not checked her blood pressure recently. She was evaluated by colorectal surgery and gastroenterology. She did not need surgical intervention. She started to improve with resolution of her abdominal
discomfort and leukocytosis. She did not have abdominal tenderness on examination. She was started on diet gradually and tolerated the food with no nausea or vomiting or pain. She had magnetic resonance imaging of the abdomen with contrast that
showed signs consistent with acute ischemic colitis of sigmoid colon, severe stenosis more than 70% at the origin of inferior mesenteric artery and moderate diverticulosis in the sigmoid colon. These findings were discussed with vascular surgery
and recommended outpatient follow-up. Patient was advised to take prophylactic aspirin after resolution of colitis. Patient remained hemodynamically stable. She was discharged in a stable condition.
Physical exam:
GEN: No acute distress, conversant, pleasant
HEENT: anicteric, extraocular movements intact, clear oropharynx without exudates
CV: normal S1/S2, no murmur, rub or gallop
RESP: clear to auscultation bilaterally
GI: soft, non-distended, not tender to palpation. Good bowel sounds.
EXT: warm, well perfused, no edema bilaterally
NEURO: AAOx3, non-focal
Psych: calm.
Total discharge time spent to see the patient, examine the patient, review data and lab results, discuss discharge plan with patient, nursing staff around 65 minutes
Discharge Plan
-
Patient Disposition: Home (Routine Discharge)
Discharge Diagnosis/Procedures: Ischemic colitis
Presented with bloody diarrhea and abdominal discomfort. You were evaluated by gastroenterology and colorectal. You did not have infectious colitis. Continue low residue diet at home for few days then advance as tolerated. Follow-up with
vascular surgery for monitoring of inferior mesenteric artery stenosis. Start taking baby aspirin in 1 week and after resolution of bloody stools.
He received empiric antibiotic in the hospital. Stool culture came back negative for C. difficile. Blood culture came back clear.
Diet: Low Residue
Additional Diets: for few days then advance as tolerated
Referrals:
Ayaz Kirkland III, MD [Active] - in one month
Domo Trinh MD [Family Provider] - in one to two weeks
Sagar Blair MD [Active] -
Destinee Servin DO [Active] - 08/21/23 11:00 am
Prescriptions:
Continued
folic acid 400 mcg Tablet
0.4 mg PO DAILY
gabapentin 600 mg Tablet
600 mg PO BID
famotidine [Pepcid] 20 mg Tablet
20 mg PO DAILY
izmeijt-ngnezgcihh-NCW-caff [id number] mg capsule
1 cap PO DAILYPRN PRN (Reason: mirgraines)
pantoprazole [Protonix] 40 mg Tablet,Delayed Release (Dr/Ec)
40 mg PO DAILY
lisinopril 10 mg Tablet
10 mg PO DAILY
cholecalciferol (vitamin D3) [Vitamin D3] 25 mcg (1,000 unit) Tablet
25 mcg PO DAILY
venlafaxine 225 mg Tablet Extended Release 24hr
225 mg PO DAILY
Discharge Orders:
Discharge Patient (As Directed); Ordered 07/27/23
Ordered By: Sabrina Moulton
Discharge Date and Time
Discharge Date/Time: 07/27/23 12:40
Print Language: ROMANSH
== END 2023-07-27 12:40 | disposition home or self-care (01) | DRG 871 ==
LOC: 3 WEST ACU 18:29
PROVIDERS: Nurse Practitioner Gerontology; Physician Assistant; Physician Assistant Medical; ADMITTING PHYSICIAN Internal Medicine; CONSULT PHYSICIAN Surgery; EMERGENCY PHYSICIAN Emergency Medicine; FAMILY PHYSICIAN Family Medicine; OTHER PHYSICIAN Internal Medicine
DX: A41.9 Sepsis, unspecified organism (principal); K55.039 Acute (reversible) ischemia of large intestine, extent unspecified; K57.32 Diverticulitis of large intestine without perforation or abscess without bleeding; D62 Acute posthemorrhagic anemia; K62.5 Hemorrhage of anus and rectum; K21.9 Gastro-esophageal reflux disease without esophagitis; I10 Essential (primary) hypertension; F41.1 Generalized anxiety disorder; M54.81 Occipital neuralgia; E87.6 Hypokalemia; K44.9 Diaphragmatic hernia without obstruction or gangrene; K64.9 Unspecified hemorrhoids
CPT/HCPCS: 74177; 74185; 80048; 80053; 82607; 82728; 82746; 83540; 83550; 83605; 83735; 85025; 85027; 85610; 85730; 86850; 86900; 86901; 87040; 87045; 87046; 87324; 87427; 87449; 89055; 96361; 96365; 96375; 99285; Q9967

== ENCOUNTER → 2023-12-26 10:39 | Outpatient (REF) | payer BC, SELFPAY | LOC: RAD 10:39 | PROVIDERS: ATTENDING PHYSICIAN Internal Medicine Endocrinology, Diabetes & Metabolism; FAMILY PHYSICIAN Family Medicine | DX: E04.2 Nontoxic multinodular goiter (principal) | CPT/HCPCS: 76536 ==

== ENCOUNTER → 2024-03-05 09:51 | Outpatient (REF) | payer BC, SELFPAY | LOC: WDC 09:51 | PROVIDERS: ATTENDING PHYSICIAN Obstetrics & Gynecology Gynecology; FAMILY PHYSICIAN Family Medicine | DX: N64.4 Mastodynia (principal) | CPT/HCPCS: 76642; 77061; 77065 ==

== ENCOUNTER → 2024-06-09 10:44 | Outpatient (REF) | payer BC, SELFPAY | LOC: WDC 10:44 | PROVIDERS: ATTENDING PHYSICIAN Obstetrics & Gynecology Gynecology; FAMILY PHYSICIAN Family Medicine | DX: Z12.31 Encounter for screening mammogram for malignant neoplasm of breast (principal) | CPT/HCPCS: 77063; 77067 ==

== ENCOUNTER → 2024-11-24 09:59 | Outpatient (REF) | payer BC, SELFPAY | LOC: RAD 09:59 | PROVIDERS: ATTENDING PHYSICIAN Internal Medicine Endocrinology, Diabetes & Metabolism; FAMILY PHYSICIAN Family Medicine | DX: E04.2 Nontoxic multinodular goiter (principal) | CPT/HCPCS: 76536 ==

== ENCOUNTER → 2024-12-05 10:02 | Outpatient (REF) | payer BC, SELFPAY | LOC: RAD 10:02 | PROVIDERS: ATTENDING PHYSICIAN Otolaryngology; FAMILY PHYSICIAN Family Medicine | DX: J32.0 Chronic maxillary sinusitis (principal); R09.82 Postnasal drip | CPT/HCPCS: 70486 ==